=== PATIENT | male | born 1990 | race Caucasian/White ===

== ENCOUNTER 2017-09-13 16:38 | Emergency (ER) | payer MEDICAID, OTHER ==
[~2017-09-13] VITALS: Ht 193 cm; Wt 72.3 kg
[2017-09-13 16:41] VITALS: BP 122/80
[2017-09-13] MEDS ORDERED: BUPR150T6 PO (17:15)
[2017-09-13] MEDS ORDERED: LORA-269 PO (17:15)
[2017-09-13] MEDS ORDERED: NICO-687 TOP (17:20)
== END 2017-09-13 18:10 | disposition home or self-care (01) ==
LOC: ER 16:40
DX: F10.10 Alcohol abuse, uncomplicated (principal); F32.9 Major depressive disorder, single episode, unspecified; F17.200 Nicotine dependence, unspecified, uncomplicated; Z79.899 Other long term (current) drug therapy; Y90.9 Presence of alcohol in blood, level not specified
CPT/HCPCS: 99283